=== PATIENT | female | born 2000 | race Caucasian/White ===

== ENCOUNTER 2022-09-03 10:12 | Emergency (ER) | payer OTHER ==
[2022-09-03] MEDS ORDERED: Acetaminophen/HYDROcodone 325-5 MG Tab PO ONE (11:05)
== END 2022-09-03 12:29 | disposition home or self-care (01) ==
LOC: MW.ED 10:12
DX: M62.838 Other muscle spasm (principal)
CPT/HCPCS: 72125; 99283; A9270